=== PATIENT | male | born 1960 | race American Indian/Alaskan Native ===

== ENCOUNTER 2017-02-17 05:27 | Emergency (ER) | payer BC ==
[2017-02-17 05:42] VITALS: BP 138/73; PULSE 76; RESP 18; TEMP 98.5; O2SAT 99
[2017-02-17] MEDS ORDERED: Penicillin G Benzathine 2.4 Mill Unit/4 ml Syr IM STA (06:38)
--- NOTE | 2017-02-17 06:52 | ED PDOC ---
HPI: Allergic Reaction Time Seen by Provider: 02/17/17 05:43 Chief Complaint (Nursing): Abnormal Skin Integrity Chief Complaint (Provider): Abnormal Skin Integrity History Per: Patient History/Exam Limitations: no limitations Onset/Duration Of Symptoms: Days (One Week) Current Symptoms Are (Timing): Still Present Associated Symptoms: Skin Rash. denies: Dizziness, Itching Severity: Mild Additional Complaint(s): 56 y/o male patient presenting to the ED with rash. Patient has a history of being HIV positive. CD4 250, Viral load undetectable. Patient has rash on palms and soles and states he noticed it for one week. Patient denies any other symptoms such as itchiness, fever, headache, weight loss, chills, penile discharge or rash. He states he is sexually active with one partner and has inconsistent condom usage. Past Medical History Reviewed: Historical Data, Nursing Documentation, Vital Signs Vital Signs: Last Vital Signs Temp 98.5 F 02/17/17 05:40 Pulse 76 02/17/17 05:40 Resp 18 02/17/17 05:40 BP 138/73 02/17/17 05:40 Pulse Ox 99 02/17/17 05:40 - Medical History PMH: HIV (from 1990) Denies: Chronic Kidney Disease - Family History Family History: States: Hypertension - Home Medications Home Medications: Ambulatory Orders Medication Instructions Recorded Darunavir [Prezista] 800 mg PO QPM 06/18/14 Emtricitabine/Tenofovir Diso 1 tab PO QPM 06/18/14 [Truvada 200 MG-300 MG] Ritonavir [Norvir] 100 mg PO QPM 06/18/14 Sulfamethoxazole/Trimethoprim 1 tab PO MOWEFR 06/18/14 [Bactrim 400-80 mg Tablet] Ciprofloxacin/Ciprofloxa HCl 500 mg PO BID #20 ter 06/19/14 [Ciprofloxacin] Doxycycline Hyclate [Doxycycline] 100 mg PO BID #20 tab 06/19/14 Naproxen 500 mg PO Q12H PRN #15 tab 12/14/14 Doxycycline Hyclate [Doxycycline] 100 mg PO BID #20 cap 05/19/15 - Allergies Allergies/Adverse Reactions: Allergies Allergy/AdvReac Type Severity Reaction Status Date / Time No Known Allergies Allergy Verified 06/18/14 13:19 Review of Systems ROS Statement: Except As Marked, All Systems Reviewed And Found Negative Constitutional: Negative for: Fever, Chills, Weight loss Genitourinary Male: Negative for: Penile Discharge, Rash Skin: Positive for: Rash ((+)Palms and Soles) Physical Exam - Reviewed Nursing Documentation Reviewed: Yes Vital Signs Reviewed: Yes - Physical Exam Appears: Positive for: Non-toxic, No Acute Distress Head Exam: Positive for: ATRAUMATIC, NORMAL INSPECTION, NORMOCEPHALIC Skin: Positive for: Normal Color, Warm, Dry, Rash ((+)Dark, flat, maculopapular rash of the palms and of the soles.) Neck: Positive for: Normal, Painless ROM, Supple Cardiovascular/Chest: Positive for: Regular Rate, Rhythm. Negative for: Murmur Respiratory: Positive for: Normal Breath Sounds. Negative for: Respiratory Distress Extremity: Positive for: Normal ROM Neurologic/Psych: Positive for: Alert, Oriented. Negative for: Motor/Sensory Deficits - ECG O2 Sat by Pulse Oximetry: 99 (RA) Pulse Ox Interpretation: Normal Disposition - Clinical Impression Clinical Impression: Secondary syphilis - Disposition Referrals: Terence Gonzales MD [Family Provider] - Disposition: Routine/Home Disposition Time: 06:45 Condition: STABLE Additional Instructions: Please followup with Dr. Gonzales on Saturday for your test results. Instructions: Syphilis (ED) Medical Decision Making Medical Decision Making: Time: 637 Initial impression: Syphilis Initial plan: --Penicillin Scribe Attestation: Documented by Jalyn Welsh, acting as a scribe for Reza Burks MD. Scribe Attestation: All medical record entries made by the Scribe were at my direction and personally dictated by me. I have reviewed the chart and agree that the record accurately reflects my personal performance of the history, physical exam, medical decision making, and the department course for this patient. I have also personally directed, reviewed, and agree with the discharge instructions and disposition.
[2017-02-17 17:09] LABS: RAPID PLASMA REAGIN REACTIVE (NONREACTIVE)
== END 2017-02-17 07:23 | disposition home or self-care (01) ==
LOC: H.ER 05:27
DX: A53.9 Syphilis, unspecified (principal); B20 Human immunodeficiency virus [HIV] disease
CPT/HCPCS: 86592; 86780; 87491; 87591; 96372; 99281; J0561